=== PATIENT | male | born 1990 | race Hispanic/Latino ===

== ENCOUNTER 2023-01-12 20:20 | Inpatient (IN) | payer SELFPAY ==
[~2023-01-12] VITALS: Ht 170.2 cm; Wt 63.5 kg
[2023-01-12 20:42] LABS: BASOPHILS % 0.2 % (0.0-1.0); EOSINOPHILS % 0.1 % (0.0-6.0); LYMPHOCYTES # (AUTO) 1.7 (1.0-3.2); LYMPHOCYTES % 21.6 % (18.0-39.1); MEAN CORPUSCULAR HEMOGLOBIN 24.4 pg (28-32); MEAN CORPUSCULAR HGB CONC 28.9 g/dL (31-35); MEAN CORPUSCULAR VOLUME 84.4 fL (81-99); MONOCYTES # (AUTO) 0.4 (0.2-0.8); MONOCYTES % 4.5 % (4.4-11.3); NEUTROPHILS # (AUTO) 5.9 (2.1-6.9); NEUTROPHILS % 73.2 % (38.7-80.0); PLATELET COUNT 452 x10e3/uL (140-360); RED CELL DISTRIBUTION WIDTH 15.4 % (11.7-14.4)
[2023-01-12 20:43] LABS: HEMATOCRIT 15.2 % (38.2-49.6); HEMOGLOBIN 4.4 g/dL (14.0-18.0)
[2023-01-12] MEDS ORDERED: ACETAMINOPHEN 325 MG TAB PO STA (20:49)
[2023-01-12 20:57] LABS: ALBUMIN 3.6 g/dL (3.5-5.0); ALBUMIN/GLOBULIN RATIO 1.2 (0.8-2.0); ANION GAP 12.9 mmol/L (8-16); CALCIUM 8.4 mg/dL (8.4-10.2); CREATININE, SERUM 1.03 mg/dL (0.72-1.25); POTASSIUM 3.9 mmol/L (3.5-5.1)
[2023-01-12] MEDS ORDERED: SODIUM CHLORIDE 0.9% 250ML 250 ML IV ONE (21:00)
[2023-01-12 21:05] LABS: CREATINE KINASE MB 1.5 ng/mL (0-5.0)
[2023-01-12] MEDS ORDERED: SODIUM CHLORIDE FLUSH 10 ML SYR INJ PRN (21:30)
[2023-01-12 22:14] LABS: AMPHETAMINES SCREEN,URINE NEGATIVE (NEGATIVE); BENZODIAZEPINES SCREEN,URINE NEGATIVE (NEGATIVE); CLARITY,URINE CLEAR (CLEAR); COLOR,URINE YELLOW (YELLOW); KETONES,URINE NEGATIVE (NEGATIVE); LEUKOCYTE ESTERASE ,URINE NEGATIVE (NEGATIVE); NITRITE,URINE NEGATIVE (NEGATIVE); PHENCYCLIDINE SCREEN,URINE NEGATIVE (NEGATIVE); PROTEIN,URINE DIPSTICK NEGATIVE (NEGATIVE); URINE UROBILINOGEN 0.2 mg/dL (0.2 - 1)
[2023-01-12 22:20] LABS: BACTERIA,URINE RARE /HPF; EPITHELIAL CELLS,URINE RARE /LPF; WBC,URINE (MAN) 0-5 /HPF (0-5)
[2023-01-13] VITALS (10 sets, daily range): BP systolic 108–132; BP diastolic 67–76
[2023-01-13] MEDS ORDERED: ACETAMINOPHEN 325 MG TAB PO PRN (00:30)
[2023-01-13] MEDS ORDERED: ONDANSETRON HCL INJ 2MG/ML 2ML 2 MG/ML VIAL IV PRN (00:30)
[2023-01-13] MEDS ORDERED: METOPROLOL TARTRATE INJ 1 MG/ML VIAL IV PRN (00:30)
[2023-01-13 00:52] LABS: % IRON SATURATION 3 % (15-50); IRON 16 ug/dL (65-175); TOTAL IRON BINDING CAPACITY 547 ug/dL (261-478); TRANSFERRIN 391 mg/dL (174-364)
[2023-01-13] MEDS ORDERED: CYANOCOBALAMIN INJ 1,000 MCG/ML VIAL IM ONE (02:00)
[2023-01-13 08:17] LABS: HEMATOCRIT 26.2 % (38.2-49.6); HEMOGLOBIN 8.1 g/dL (14.0-18.0)
[2023-01-13] MEDS: CYANOCOBALAMIN INJ 1,000 MCG/ML VIAL IM SCH (08:51)
[2023-01-13] MEDS: IRON SUCROSE 100 MG in SODIUM CHLORIDE 0.9% 100 ML IV SCH (08:51)
[2023-01-13] MEDS ORDERED: SODIUM CHLORIDE 0.9% 100 ML ONE (11:15)
[2023-01-13] MEDS ORDERED: IOPAMIDOL 370 MG/ML 100 ML INFUS..BTL INJ ONE (11:15)
[2023-01-13 12:22] LABS: HEMATOCRIT 28.1 % (38.2-49.6); HEMOGLOBIN 8.6 g/dL (14.0-18.0)
[2023-01-13] MEDS ORDERED: MIDAZOLAM HCL 2 MG/2 ML VIAL ONE (13:08)
[2023-01-13 18:34] LABS: HEMATOCRIT 26.9 % (38.2-49.6); HEMOGLOBIN 8.4 g/dL (14.0-18.0)
[2023-01-13] MEDS ORDERED: BISACODYL 5 MG TAB EC PO ONE ×2 (23:00→23:30)
[2023-01-14] VITALS (7 sets, daily range): BP systolic 111–138; BP diastolic 66–97
[2023-01-14] MEDS ORDERED: BISACODYL 5 MG TAB EC PO ONE
[2023-01-14] MEDS ORDERED: PEG (High)/E-LYTE SOLN 4,000 ML BTL PO ONE (05:00)
[2023-01-14 06:00] LABS: HEMATOCRIT 28.4 % (38.2-49.6)
[2023-01-14] MEDS: IRON SUCROSE 100 MG in SODIUM CHLORIDE 0.9% 100 ML IV SCH (09:19)
[2023-01-14] MEDS: CYANOCOBALAMIN INJ 1,000 MCG/ML VIAL IM SCH (09:19)
[2023-01-14] MEDS ORDERED: SODIUM CHLORIDE 0.9% 250ML 250 ML ONE (09:36)
[2023-01-14 12:17] LABS: HEMATOCRIT 27.3 % (38.2-49.6); HEMOGLOBIN 8.4 g/dL (14.0-18.0)
[2023-01-14] MEDS ORDERED: HYDROCORTISONE ACETATE 25 MG/SUPP.RECT SUPP RC ONE (20:00)
[2023-01-14 20:44] LABS: HEMATOCRIT 25.4 % (38.2-49.6); HEMOGLOBIN 7.7 g/dL (14.0-18.0)
[2023-01-15] VITALS (8 sets, daily range): BP systolic 101–113; BP diastolic 57–63
[2023-01-15 07:06] LABS: HEMATOCRIT 24.1 % (38.2-49.6); HEMOGLOBIN 7.5 g/dL (14.0-18.0)
[2023-01-15] MEDS: HYDROCORTISONE ACETATE 25 MG/SUPP.RECT SUPP RC SCH ×2 (08:48→17:50)
[2023-01-15] MEDS: CYANOCOBALAMIN INJ 1,000 MCG/ML VIAL IM SCH (08:49)
[2023-01-15] MEDS: IRON SUCROSE 100 MG in SODIUM CHLORIDE 0.9% 100 ML IV SCH (08:55)
[2023-01-15 12:25] LABS: HEMATOCRIT 25.4 % (38.2-49.6); HEMOGLOBIN 7.8 g/dL (14.0-18.0)
[2023-01-15 17:54] LABS: HEMATOCRIT 24.1 % (38.2-49.6); HEMOGLOBIN 7.4 g/dL (14.0-18.0)
[2023-01-16 01:30] VITALS: BP 98/62
[2023-01-16 04:55] LABS: BASOPHILS # (AUTO) 0.1 (0.0-0.1); BASOPHILS % 0.6 % (0.0-1.0); EOSINOPHILS # (AUTO) 0.1 (0.0-0.4); EOSINOPHILS % 0.6 % (0.0-6.0); HEMOGLOBIN 7.6 g/dL (14.0-18.0); LYMPHOCYTES # (AUTO) 1.9 (1.0-3.2); LYMPHOCYTES % 21.3 % (18.0-39.1); MEAN CORPUSCULAR HEMOGLOBIN 25.7 pg (28-32); MEAN CORPUSCULAR HGB CONC 30.4 g/dL (31-35); MEAN CORPUSCULAR VOLUME 84.5 fL (81-99); MONOCYTES # (AUTO) 0.7 (0.2-0.8); MONOCYTES % 7.8 % (4.4-11.3); NEUTROPHILS # (AUTO) 6.1 (2.1-6.9); NEUTROPHILS % 69.4 % (38.7-80.0); PLATELET COUNT 335 x10e3/uL (140-360); RED BLOOD COUNT 2.96 x10e6/uL (4.3-5.7); RED CELL DISTRIBUTION WIDTH 15.7 % (11.7-14.4)
[2023-01-16 05:15] LABS: ALBUMIN 3.1 g/dL (3.5-5.0); ALBUMIN/GLOBULIN RATIO 1.1 (0.8-2.0); ANION GAP 14.5 mmol/L (8-16); CALCIUM 8.3 mg/dL (8.4-10.2); CREATININE, SERUM 1.13 mg/dL (0.72-1.25); POTASSIUM 3.5 mmol/L (3.5-5.1)
[2023-01-16 05:18] VITALS: BP 104/45
[2023-01-16 08:37] VITALS: BP 107/63
[2023-01-16] MEDS: CYANOCOBALAMIN INJ 1,000 MCG/ML VIAL IM SCH (09:12)
[2023-01-16] MEDS: IRON SUCROSE 100 MG in SODIUM CHLORIDE 0.9% 100 ML IV SCH (09:13)
[2023-01-16] MEDS: HYDROCORTISONE ACETATE 25 MG/SUPP.RECT SUPP RC SCH (09:13)
[2023-01-16 09:43] VITALS: BP 107/63
[2023-01-16 12:22] VITALS: BP 127/67
== END 2023-01-16 15:00 | disposition home or self-care (01) | DRG 812 ==
LOC: ER 20:23 → ERHOLD 21:26 → MED/SURG2 23:58
PROVIDERS: ADMIT Internal Medicine; ATTEND Internal Medicine
PROC: 0DB98ZX Excision of Duodenum, Via Natural or Artificial Opening Endoscopic, Diagnostic (ICD-10-PCS; 2023-01-13)
PROC: 0DB78ZX Excision of Stomach, Pylorus, Via Natural or Artificial Opening Endoscopic, Diagnostic (ICD-10-PCS; principal; 2023-01-13 17:22)
PROC: 0DJD8ZZ Inspection of Lower Intestinal Tract, Via Natural or Artificial Opening Endoscopic (ICD-10-PCS; 2023-01-14)
DX: D62 Acute posthemorrhagic anemia (principal); K29.70 Gastritis, unspecified, without bleeding; K64.8 Other hemorrhoids; Z20.822 Contact with and (suspected) exposure to COVID-19
CPT/HCPCS: 36415; 43239; 45378; 71045; 74174; 80053; 80307; 81001; 82550; 82553; 82607; 82746; 83540; 84466; 84484; 85014; 85018; 85025; 85045; 86850; 86900; 86920; 88305; 88312; 88342; 93005; 94799; 96361; 99284; J1756; J2250; J3420; J7050; P9016; Q9967